=== PATIENT | female | born 1985 | race Caucasian/White ===

== ENCOUNTER 2022-02-10 13:22 | Emergency (ER) | payer SELFPAY ==
[2022-02-10 14:03] VITALS: BP 144/76
== END 2022-02-10 21:08 | disposition left against medical advice (07) ==
LOC: ED 13:22
DX: M79.601 Pain in right arm (principal); Z53.21 Procedure and treatment not carried out due to patient leaving prior to being seen by health care provider

== ENCOUNTER 2022-02-11 06:56 | Emergency (ER) | payer MEDICARE ==
[2022-02-11] MEDS ORDERED: CYCLOBENZAPRINE 10 MG TAB PO ONE (11:33)
[2022-02-11] MEDS ORDERED: IBUPROFEN 800 MG TAB PO ONE (11:33)
--- NOTE | 2022-02-11 11:36 | Emergency Department Report ---
ED General Adult HPI - General Chief complaint: Extremity Injury, Upper Stated complaint: RT ARM PAIN PUI?: No Time Seen by Provider: 02/11/22 10:43 Source: patient Mode of arrival: Ambulatory Limitations: No Limitations - History of Present Illness Severity scale (0 -10): 3 - Related Data Previous Rx's Medication Instructions Recorded Last Taken Type Cyclobenzaprine [Flexeril] 10 mg PO TID PRN #10 tablet 02/11/22 Unknown Rx Ibuprofen [Motrin] 800 mg PO Q8HR PRN #30 tablet 02/11/22 Unknown Rx Allergies Allergy/AdvReac Type Severity Reaction Status Date / Time acetaminophen Allergy Rash Verified 02/10/22 14:04 [From Tylenol-Codeine #3] aspirin Allergy Rash Verified 02/10/22 14:04 codeine Allergy Rash Verified 02/10/22 14:04 [From Tylenol-Codeine #3] iodine Allergy Rash Verified 02/10/22 14:04 ED Review of Systems ROS: Stated complaint: RT ARM PAIN Other details as noted in HPI Comment: All other systems reviewed and negative ED Past Medical Hx - Past Medical History Previous Medical History?: Yes Hx Hypertension: Yes Additional medical history: tetrology of fallot , - Surgical History Past Surgical History?: Yes - Family History Family history: no significant - Social History Smoking Status: Never Smoker Substance Use Type: None - Medications Home Medications: Home Medications Medication Instructions Recorded Confirmed Last Taken Type Cyclobenzaprine [Flexeril] 10 mg PO TID PRN #10 tablet 02/11/22 Unknown Rx Ibuprofen [Motrin] 800 mg PO Q8HR PRN #30 tablet 02/11/22 Unknown Rx ED Physical Exam - General Limitations: No Limitations General appearance: alert, in no apparent distress - Head Head exam: Present: atraumatic, normocephalic - Eye Eye exam: Present: normal appearance - ENT ENT exam: Present: mucous membranes moist - Neck Neck exam: Present: normal inspection - Respiratory Respiratory exam: Present: normal lung sounds bilaterally. Absent: respiratory distress - Cardiovascular Cardiovascular Exam: Present: regular rate. Absent: systolic murmur, diastolic murmur, rubs, gallop - GI/Abdominal GI/Abdominal exam: Present: soft, normal bowel sounds - Extremities Exam Extremities exam: Present: normal inspection - Back Exam Back exam: Present: normal inspection - Neurological Exam Neurological exam: Present: alert, oriented X3 - Psychiatric Psychiatric exam: Present: normal affect, normal mood - Skin Skin exam: Present: warm, dry, intact, normal color. Absent: rash ED Course Vital Signs 02/11/22 07:32 Temperature 98 F Pulse Rate 89 Respiratory 16 Rate Blood Pressure 141/73 [Left] O2 Sat by Pulse 99 Oximetry Critical care attestation.: If time is entered above; I have spent that time in minutes in the direct care of this critically ill patient, excluding procedure time. ED Disposition Clinical Impression: Muscle spasm Disposition: HOME / SELF CARE / HOMELESS Is pt being admited?: No Does the pt Need Aspirin: No Condition: Stable Instructions: Muscle Cramps and Spasms, [id number] Additional Instructions: MEDS ORDERED TODAY FOLLOW UP WITH PCP IN 48 HOURS REFERRAL BELOW STAY WELL HYDRATED Referrals: TIFFANY MCDERMOTT MD [Staff Physician] - 3-5 Days Time of Disposition: 11:33
[2022-02-11 12:21] VITALS: BP 138/68
== END 2022-02-11 12:18 | disposition home or self-care (01) ==
LOC: ED 06:56
DX: M62.838 Other muscle spasm (principal); M79.601 Pain in right arm; I10 Essential (primary) hypertension; Z79.899 Other long term (current) drug therapy; Z88.6 Allergy status to analgesic agent; Z88.5 Allergy status to narcotic agent; Z88.8 Allergy status to other drugs, medicaments and biological substances
CPT/HCPCS: 99282